=== PATIENT | female | born 1960 | race Caucasian/White ===

== ENCOUNTER 2024-01-20 06:07 | Outpatient (REF) | payer MEDICARE, MEDICAID, SELFPAY ==
[2024-01-20 08:05] LABS: Anion Gap 13 (12-20); Blood Urea Nitrogen 9 mg/dL (9-16); Calcium 9.5 mg/dL (8.4-10.2); Carbon Dioxide 29 mmol/L (22-29); Chloride 107 mmol/L (96-108); Cholesterol 205 mg/dL (<200); Estimated Glomerular Filt Rate > 60; Glucose Random 102 mg/dL (60-115); HDL Cholesterol 70 mg/dL (>40); LDL Cholesterol Calculated 115 mg/dL (<100); Sodium 145 mmol/L (135-145); Triglycerides 101 mg/dL (<150)
== END 2024-01-20 06:08 | disposition home or self-care (01) ==
LOC: HO.LAB 06:07
PROVIDERS: PCP Family Medicine; Visit Provider Family Medicine
DX: M79.672 Pain in left foot (principal); E78.00 Pure hypercholesterolemia, unspecified
CPT/HCPCS: 36415; 80048; 80061

== ENCOUNTER 2025-02-05 08:27 | Outpatient (REF) | payer MEDICARE, MEDICAID, SELFPAY ==
--- NOTE | ~2025-02-05 | XR_ITS ---
EXAMINATION: XR SHOULDER 2 OR MORE VIEWS LEFT HISTORY: Pain in joint of left shoulder COMPARISON: There are no prior studies available for comparison. FINDINGS: Four views of the left shoulder are submitted. Osseous mineralization is normal. There is no fracture or dislocation. There is mild narrowing of the AC joint. The soft tissues are unremarkable. XR/XR shoulder LT min 2V IMPRESSION: Mild narrowing of the AC joint. Electronically signed by: Ld Coates MD 02/07/2025 01:52 PM EDT
== END 2025-02-05 08:28 | disposition home or self-care (01) ==
LOC: HO.XRAY 08:27
PROVIDERS: PCP Family Medicine; Visit Provider Nurse Practitioner Primary Care
DX: M25.512 Pain in left shoulder (principal)
CPT/HCPCS: 73030

== ENCOUNTER → 2025-02-05 08:55 | Outpatient (BNV) | payer MEDICARE, MEDICAID, SELFPAY | PROVIDERS: PCP Family Medicine; Visit Provider Radiology Diagnostic Radiology | DX: M25.512 Pain in left shoulder (principal) | CPT/HCPCS: 73030 ==

== ENCOUNTER 2025-10-03 07:24 | Outpatient (REF) | payer MEDICARE, MEDICAID, SELFPAY ==
--- OUTSIDE RECORDS SUMMARY | 2025-10-03 07:28 | XMS_ITS | Encounter Summary ---
Author Organization [facility] Address [address] [facility] [address] [place] [address] Phone Care Team Providers Care Microbiology Soil Scientist Name Role Phone Ld Martin MD Unavailable [phone] Ld Martin MD Unavailable Terence Marx MD Primary Care Provider Terence Marx MD Unavailable Encounter Details Date Type Department Care Team (Latest Contact Info) Description 12/04/2022 Transcribe Orders Virtual Department [address] [place] [address] Terence Marx MD [address] [place] [address], [address] [place] [address] [email or web address] Encounter for screening mammogram for malignant neoplasm of breast (Primary Dx) Social History Tobacco Use Types Packs/Day Years Used Date Smoking Tobacco: Former Cigarettes Smokeless Tobacco: Never Child or Family Care Answer Date Record ed Do you have problems with on e of the following making it difficult for you to work, study, or receive health care? No 05/23/2021 Education Answer Date Recorded Are you interested in help w ith more adult education (for example, completing high school, GED, job training, learning the [place] language, technical skills, or developing parenting skills)? No 05/23/2021 Food Answer Date Recorded Within the past 6 months we worried whether our food would run out before we got money to buy more. Never True 05/23/2021 Within the past 6 months the food we bought just didn't last and we didn't have enough money to get more. Never True Residential Stability Answer Date Recor ded What is your housing situation today? I have mingo mayes 05/23/2021 How many times have you move d in the past 12 months? Zero (I did not move) 05/23/2021 Paying for Meds Answer Date Recorded Do you have trouble paying for medicines? No 05/23/2021 Paying Utility Bills Answer Date Record ed Do you have trouble paying your heating or elect ricity bill? No 05/23/2021 Transportation Answer Date Recorded Has the lack of transportati on kept you from medical appointments or from getting medications? No 05/23/2021 Unemployment Answer Date Recorded Are you currently unemployed or working on a part-time or temporary basis, and looking for work? No 05/23/2021 Comments Unknown Sex and Gender Information Value Date Recorded Sex Assigned at Female 05/25/2020 10:28 AM EDT Legal Sex Female 9:50 PM EDT Gender Identity Female 05/25/2020 10:28 AM EDT Sexual Orientation Not on file documented as of this encounter Plan of Treatment Upcoming Encounters Date Type Department Care Team (Late st Contact Info) Description 03/18/2025 Procedure Pass [address] [address] 12/16/2025 9:30 AM EST Office Visit [facility] Medicine [address] [place] [address] Terence Marx MD [address] [place] [address] 04/19/2026 9:30 AM EDT Appointment [address] [address] Terence Marx MD [address] [place] [address] documented as of this encounter Results * BI MAMMOGRAM SCREENING WITH TOMOSYNTHESIS WITH CAD (BILATERAL) (12/10/2022 2:51 PM EST) Anatomical Region Laterality Modality Breast Left, Breast Right, Breast Bilateral Bila teral Mammography 12/13/2022 8:27 AM EST Impressions 12/13/2022 8:54 AM EST No mammographic signs of malignancy. Annual screening is recommended. BI-RADS CATEGORY: 1 - Negative. DENSITY: The breast tissue is almost entirely fat. Narrative 12/13/2022 8:54 AM EST Bilateral mammography is performed in conjunction with computed aided detection. 3-D tomography along with 2-D C view imaging was also performed. Comparison made to previous dated as far back as 09/21/2004 and as recent as 01/14/2012. No suspicious masses, areas of architectural distortion or suspicious microcalcifications. Procedure Note Petr Drake MD - 12/13/2022 Bilateral mammography is performed in conjunction with computed aideddetection. 3-D tomography along with 2-D C view imaging was alsoperformed. Comparison made to previous dated as far back as 09/21/2004 andas recent as 01/14/2012. No suspicious masses, areas of architectural distortion or suspiciousmicrocalcifications. IMPRESSION: No mammographic signs of malignancy. Annual screening is recommended. BI-RADS CATEGORY: 1 - Negative. DENSITY: The breast tissue is almost entirely fat. Terence Marx MD IMG MG EXAMS Final Result documented in this encounter Visit Diagnoses Diagnosis Encounter for screening mammogram for malignant neoplasm of breast- Primary Encounter for screening mammogram for malignant neoplasm of breast documented in this encounter Additional Health Concerns Assessment Noted Time PHQ-9 Depression Total Score: 9 11/25/19 23 2:11 PM EST PHQ-2 Depression Total Score: 3 11/25/19 2:11 PM EST documented as of this encounter Care Teams Microbiology Soil Scientist Relationship Specialty Start Date End Date Terence Marx MD [address] [place] [address] [address] [place] [phone] [email or web address] PCP - General Family Medicine 11/25/22 Ld Martin MD [address] [place] [address] [address] [place] [phone] [email or web address] Historical LMR Provider 08/23/17 Ld Martin MD [address] [place] [address] [address] [place] [phone] [email or web address] Insurance Assigned Provider 10/04/17 Terence Marx MD [address] [place] [address] [address] [place] [id number] [email or web address] Insurance Assigned Provider 02/07/24 documented as of this encounter Additional Source Comments The information contained in this document represents components of the legal health record. It is not the complete legal health record.[facility]
--- OUTSIDE RECORDS SUMMARY | 2025-10-03 07:28 | XMS_ITS | Clinical Summary ---
Author Organization [employer] Address [address] [facility] 7[address] [place] [address] Care Team Providers Care Certified Tower Climber Name Role Phone Unavailable Primary Care Provider Unavailabl e Allergies Active Allergy Reactions Criticality Noted Date Comments Codeine Rash Low 05/14/2024 Diclofenac Shortness of breath High 05/14/2024 Oxcarbazepine Shortness of breath High 09/22/2017 Rash,swelling of tongue and throat. Pantoprazole 09/22/2017 Rash swelling of the throat and tongue. Sodium Iodide Rash Low 05/14/2024 Venlafaxine Rash,Shortness of breath High 09/22/2017 Throat swelling swollen tougne Medications albuterol (Ventolin HFA) 108 (90 Base) MCG/ACT inhaler Inhale 2 puffs every 4 (four) hours if needed. 7 Active b complex vitamins capsule Take 1 capsule by mouth in the morning. Active DULoxetine (Cymbalta) [address] capsule TAKE 2 CAPSULES BY MOUTH EVERY MORNING AND TAKE 1 CAPSULE EVERY EVENING. 3 Active gabapentin (Neurontin) 800 MG tablet Take 800 mg by mouth 2 times daily. 3 Active ibuprofen 600 MG tablet Take 1 tablet by mouth every 8 (eight) hours if needed. 3 Active magnesium oxide (Mag-Ox) 250 MG tablet Take 250 mg by mouth in the morning. Active omeprazole (PriLOSEC) [address] capsule 3 Active traZODone (Desyrel) 50 MG tablet TAKE THREE TABLETS BY MOUTH AT BEDTIME 3 Active buPROPion (Zyban) 150 MG 12 hr tablet Take 150 mg by mouth 2 times daily. Do not crush, chew, or split. Active budesonide-form oterol (Symbicort) 160-4.5 MCG/ACT inhaler Inhale 2 puffs in the morning and at bedtime. Rinse mouth with water after use to reduce aftertaste and incidence of candidiasis. Do not swallow. Active Active Problems No known active problems Social History Tobacco Use Types Packs/Day Years Used Date Smoking Tobacco: Former Cigarettes Smokeless Tobacco: Former Tobacco Cessation:Counseling Given: Not Answered Comments Unknown Sex and Gender Information Value Date Recorded Sex Assigned at Female 08/07/2023 9:51 AM EDT Legal Sex Female 9:46 AM EDT Gender Identity Female 08/07/2023 9:51 AM EDT Sexual Orientation Choose not to disclose 2022 9:51 AM EDT Last Filed Vital Signs Vital Sign Reading Time Taken Comments Blood Pressure 114/62 03/15/2025 2:02 PM EDT Pulse 66 03/15/2025 2:02 PM EDT Temperature - - Respiratory Rate - - Oxygen Saturation - - Inhaled Oxygen Concentration - - Weight - - Height - - Body Mass Index - - Plan of Treatment Upcoming Encounters Date Type Department Care Team (Late st Contact Info) Description 10/14/2025 8:00 AM EST Office Visit [facility] [address] [place] [address] Humberto Hidalgo Health Maintenance Due Date Last Done Comments CT Colonography 1959 Colonoscopy 1959 Dental X-Ray: Full Mouth 1959 Depression Screening 1959 FIT DNA/Cologuard 1959 FOBT 1959 SDOH Screening 1959 Sigmoidoscopy 1959 IPV Vaccines (2 of 3 - 4-dose series) 06/19/1960 05/22/1960 Alcohol/Substance Use Screening 1971 Hepatitis C Screening 1977 Pneumococcal Vaccine: 50+ Years (1 of 2 - PCV) 1978 RSV Patients and Patients Aged 60 years or older (1 - Risk 50-74 years 1-dose series) 2009 Colorectal Cancer Screening 04/10/2022 FIT 04/10/2022 04/10/2021 Dental Oral Exam 06/23/2024 12/23/2023 Mammogram 12/10/2024 12/10/2022, 12/10/2022 COVID-19 Vaccine ( season) 2025 08/29/2023, 02/07/2023, 03/12/2022, Additional history exists Influenza Vaccine (#1) 2025 , 08/22/2021, 09/15/2019, Additional history exists Dental Prophylaxis 09/16/2025 03/15/2025, 1 11/15/2023, 01/08/2024 Tobacco Screening 03/15/2026 03/15/2025 Dental X-Ray: Bitewings 03/16/2026 03/15/2025, 08/07 DTaP/Tdap/Td Vaccines (3 - Td or Tdap) 03/09/2034 03/09/2024, 12/15/2013, 03/08/2002, Additional history exists Zoster Vaccines Completed 11/28/2021, 05/23/2021 HIB Vaccines Aged Out No longer eligi ble based on patient's age to complete this topic HPV Vaccines Aged Out No longer eligi ble based on patient's age to complete this topic Hepatitis A Vaccines Aged Out No long er eligible based on patient's age to complete this topic Hepatitis B Vaccines Aged Out No long er eligible based on patient's age to complete this topic Meningococcal B Vaccine Aged Out No l onger eligible based on patient's age to complete this topic Meningococcal Vaccine Aged Out No bhanu gee eligible based on patient's age to complete this topic RSV under 20 months Aged Out No longe r eligible based on patient's age to complete this topic Rotavirus Vaccines Aged Out No longer eligible based on patient's age to complete this topic Procedures Procedure Name Priority Date/Time Associated Diagnosis Comments PROPHYLAXIS - ADULT Routine 03/15/2025 2 :00 PM EDT BITEWINGS - 4 RADIOGRAPHIC IMAGES Routine 03/15/2025 2:00 PM EDT COMPREHENSIVE ORAL EVALUATION - NEW OR ESTABLISHED PATIENT Routine 12/23/2023 2:00 PM EST from Last 3 Months or Most Recently Relevant to Health Maintenance Insurance [facility] STANDARD DENTAL - HSN FULL (MEDICAID)
--- OUTSIDE RECORDS SUMMARY | 2025-10-03 07:28 | XMS_ITS | Encounter Summary ---
Author Organization [facility] Address [address] [address] [place] [address] Phone Care Team Providers Care Foreign Exchange Position Clerk Name Role Phone Ld Martin MD Unavailable [phone] Ld Martin MD Unavailable [phone] Terence Marx MD Primary Care Provider [phone] Terence Marx MD Unavailable Encounter Details Date Type Department Care Team (Late st Contact Info) Description 12/04/2022 Procedure Pass [facility] - [address] [place] [address] Social History Tobacco Use Types Packs/Day Years [...] high school, GED, job training, learning the [place] language, technical skills, or developing parenting skills)? [...] and looking for work? No 05/23/2021 Comments No Sex and Gender Information Value Date Recorded Sex Assigned at Female 05/25/2020 10:28 AM EDT Legal Sex Female 9:50 PM EDT Gender Identity Female 05/25/2020 10:28 AM EDT Sexual Orientation Not on file documented as of this encounter Plan of Treatment Upcoming Encounters Date Type Department Care Team (Late st Contact Info) Description 03/18/2025 Procedure Pass [address] [address] 12/16/2025 9:30 AM EST Office Visit [facility] Medicine [address] [place] [address] Terence Marx MD [address] [place] [address] 04/19/2026 9:30 AM EDT Appointment [address] [address] Terence Marx MD [address] [place] [address] documented as of this encounter Visit Diagnoses Not on filedocumented in this encounter Additional Health Concerns Assessment Noted Time PHQ-9 Depression Total Score: 9 11/25/19 2:11 PM EST PHQ-2 Depression Total Score: 3 11/25/19 2:11 PM EST documented as of this encounter Care Teams Foreign Exchange Position Clerk Relationship Specialty Start Date End Date Terence Marx MD [address] [facility] [address] [place] [address] [email or web address] PCP - General Family Medicine 11/25/22 Ld Martin MD [address] [facility] [address] [place] [phone] [email or web address] Historical LMR Provider 08/23/17 Ld Martin MD [address] [facility] [address] [place] [phone] [email or web address] Insurance Assigned Provider 10/04/17 Terence Marx MD [address] [facility] [address] [place] [address] [email or web address] Insurance Assigned Provider 02/07/24 documented as of this encounter Additional Source Comments The information contained in this document represents components of the legal health record. It is not the complete legal health record.[facility]
--- OUTSIDE RECORDS SUMMARY | 2025-10-03 07:28 | XMS_ITS | Clinical Summary ---
Author Organization [facility] Address [address] [address] Phone Care Team Providers Care Case Aide Name Role Phone Ld Martin MD Unavailable Tami Marx MD Primary Care Provider [phone] Tami Marx MD Unavailable Allergies Active Allergy Reactions Criticality Noted Date Comments Adhesive Tape-Silicones 07/01/2024 Codeine Rash Low 05/14/2024 Diclofenac Shortness Of Breath High 05/14/2024 Oxcarbazepine Shortness Of Breath High 09/22/2017 Rash,swelling of tongue and throat. Pantoprazole 09/22/2017 Rash swelling of the throat and tongue. Sodium Iodide Rash Low 05/14/2024 Venlafaxine Rash,Shortness Of Breath High 09/22/2017 Throat swelling swollen tougne Medications aahezbbf-bjk-ts rrous fumarate 9 mg iron/15 mL Liqd as directed Active Ca cit-D3-mag#11-z chl-qapc-npo-dov r (CALTRATE 600+D) 600 mg calcium- 800 unit-50 mg Tab Take 1 tablet by mouth daily. Active magnesium oxide 250 mg (150 mg elemental) Tab Take 250 mg by mouth daily. Active biotin, bulk, 100 % Powd 2,500 mg by Miscellaneous route. Active b complex vitamins capsule Take 1 capsule by mouth daily. Active potassium 99 mg Tab Take by mouth daily. Active bacillus coagulans-inuli n 1 billion-250 cell-mg Cap Take 250 mg by mouth daily. Active VENTOLIN HFA 90 mcg/actuation inhalerIndicati ons:Mild asthma without complication, unspecified whether persistent Inhale 2 puffs into the lungs every 4 (four) hours as needed for wheezing. 18 g 5 3 Active budesonide-form oterol 160-4.5 mcg/actuation inhalerIndicati ons:Mild asthma without complication, unspecified whether persistent Inhale 2 puffs into the lungs 2 (two) times a day. 10.2 g 2 4 Active gabapentin (NEURONTIN) 800 MG tabletIndicatio ns:Fibromyalgia TAKE ONE TABLET BY MOUTH THREE TIMES A DAY. 270 tablet 3 5 Active DULoxetine (CYMBALTA) 60 MG capsule Take 1 capsule (60 mg total) by mouth daily. 90 capsule 3 5 Active DULoxetine (CYMBALTA) 30 MG capsule Take 1 capsule (30 mg total) by mouth daily. 90 capsule 3 5 Active omeprazole (PRILOSEC) 20 MG capsuleIndicati ons:Gastroesoph ageal reflux disease, unspecified whether esophagitis present Take 2 capsules (40 mg total) by mouth daily. 180 capsule 3 5 Active traZODone (DESYREL) 50 MG tabletIndicatio ns:Recurrent major depressive disorder, in partial remission TAKE THREE TABLETS BY MOUTH DAILY AT BEDTIME 270 tablet 3 5 Active foot care products Pads 2 Pads by Miscellaneous route as needed (Foot care). 2 each 2 5 Active HYDROmorphone (DILAUDID) 4 MG tabletIndicatio ns:Chronic left shoulder pain Take 1 tablet (4 mg total) by mouth daily as needed for pain (specific location in comments) (shoulder pain). 28 tablet 5 Active Hospital, Clinic, or Other Facility Administered Medication Ordered Dose Route Frequency Start Date End Date Status lidocaine (XYLOCAINE) 1% injection 2 mL 2 mL See Adm Inst See admin instructions 01/10/2023 Active BUPivacaine HCl (MARCAINE) 0.25% injection 2 mL 2 mL See Adm Inst See admin instructions 01/10/2023 Active triamcinolone acetonide (KENALOG-40) 40 mg/mL injection 40 mg 40 mg See Adm Inst See admin instructions 01/10/2023 Active Active Problems Problem Noted Date Diagnosed Date Generalized anxiety disorder 03/18/2025 Urge incontinence 03/18/2025 Primary insomnia 10/11/2024 Acquired hallux valgus of right foot 07/01/2024 Bunion of great toe of right foot 12/17/2023 Assessment & Plan (12/17/2023 12:37 AM EST): Patient would like to get an opinion from a reconciling clerk regarding her right foot bunion. It has been bothering her more with increased irritation along the side of the foot due to rubbing against the side of the shoe. A referral was placed for patient to follow-up with a reconciling clerk. Left foot pain 10/08/2023 Assessment & Plan (10/08/2023 8:32 PM EST): Patient has foot pain on the left side after suffering a fall at the end of June. She would like to see a reconciling clerk and referral has been placed during this appointment. Chronic left-sided low back pain with left-sided sciatica 04/28/2023 Assessment & Plan (10/08/2023 8:30 PM EST): Patient is going to be following up with aircraft painter apprentice next week after seeing the neurosurgeon. She continues to have left-sided low back pain for which she is taking ibuprofen, duloxetine and Tylenol. Will wait to see what the aircraft painter apprentice has to say about her condition and treatment options. Assessment & Plan (05/22/2023 9:41 AM EDT): Patient had MRI done earlier this month that shows mild to moderate spinal canal stenosis at the L3-L4 level as well as severe narrowing of the left subarticular zone the L4-L5 level. She is supposed to follow-up with neurosurgery at [facility] as a referral was placed by Dr. Law who ordered the MRI. She has not heard back from their office to set up an actual time but she is hoping to call them today and figure out how quickly they can see her regarding this problem. I will see the patient back in 6 weeks to make sure that she has discussed the case with neurosurgery and to see if they recommend conservative treatment or surgical intervention at this time. Assessment & Plan (04/28/2023 3:47 PM EDT): Please see plan- sciatica left side. Sciatica of left side 04/23/2023 Assessment & Plan (04/28/2023 3:48 PM EDT): I diagnosed Juan with left-sided sciatica today in the office-this is ongoing. Her symptoms are not improving- getting worse. She had a x-ray of the lower lumbar spine done in November showing arthritis. I wrote for an MRI to rule out any neurological issues. I wrote for Flexeril-to be taken as directed and side effects discussed regarding this medication- avoid driving or operating any heavy machinery while on this medication as it can cause an impairment in judgment. I wrote for physical therapy as well. I gave guidance regarding additional symptomatic management. She will call if her symptoms get worse or if there are any other issues or concerns. She understands and agrees. Assessment & Plan (04/23/2023 2:27 PM EDT): Will try prednisone taper for symptoms. She will follow up as needed if she is not improving. Mild asthma without complication 03/02/2023 Assessment & Plan (12/17/2023 12:36 AM EST): Patient had been using the Symbicort in the past but now reports that she would like to go back to using it on a daily basis now that she is having more shortness of breath with exertion. She has been using the Ventolin more frequently but would like to go back to taking an inhaler on a daily basis. Assessment & Plan (03/02/2023 5:03 PM EDT): Patient given refill on her Ventolin inhaler as she is no longer using the Symbicort. Patient only uses the Ventolin as needed. She has not required it in the last few weeks. Chronic left shoulder pain 11/25/2022 Assessment & Plan (11/25/2022 6:39 PM EST): Ordered x-ray of the left shoulder. We will discuss results with patient through the portal or via phone call. Chronic pain of both knees 11/25/2022 Assessment & Plan (11/25/2022 6:40 PM EST): Patient continues to complain of pain on the outside part of both knees. Will order x-rays of both knees and devise a plan to deal with the findings. If patient has mild to moderate arthritis, we will order physical therapy. If patient has severe degenerative joint disease, will refer to orthopedics for possible surgery and replacement of joint. Hip pain, chronic, left 11/25/2022 Assessment & Plan (11/25/2022 6:39 PM EST): Ordered x-ray of the left hip to check for arthritis. We will discuss results with patient once the imaging is done. Cervicalgia 11/28/2021 Assessment & Plan (11/28/2021 1:21 PM EST): I do think that rather than adding additional medication, therapeutic massage would be appropriate. Written prescription given Lumbar radiculopathy 11/28/2021 Assessment & Plan (03/02/2023 5:05 PM EDT): Patient complaining of lower back pain radiating to her left hip. We had gotten x-rays at the beginning of the year that showed arthritis. I had referred patient to physical therapy but patient lives in [place] and is unable to schedule ongoing PT due to transportation. I have not referred her to a physical therapist closer to home in [place] and I hope that she is able to follow-up so that she may get some relief in her low back pain. Assessment & Plan (11/25/2022 6:38 PM EST): We will increase the gabapentin to 800 mg 3 times a day to help relieve nerve pain coming from her lower back. Recheck in 4 weeks with patient to see how the new dose is working. Assessment & Plan (11/28/2021 1:20 PM EST): Juan continues to have pain. I do think that stress at home does not make this any better. Depression 09/14/2017 Assessment & Plan (12/17/2023 12:39 AM EST): Patient continues to feel depressed and I offered to increase her dose of duloxetine during the appointment. When I went to adjust the directions for the patient, she was surprised to learn that she is supposed to be taking 2 capsules in the morning and 1 in the afternoon. She has only been taking 1 twice a day. I will have the patient make the adjustment and reassess her in 3 months. Assessment & Plan (03/02/2023 5:06 PM EDT): Patient takes the duloxetine for her depression. She would like a refill of the duloxetine and the trazodone. Trazodone is used only at night to help her sleep. The duloxetine seems to be doing okay as her mood seems to be stable in the office today. We will call in prescription for duloxetine and trazodone. Fibromyalgia 09/14/2017 Assessment & Plan (12/17/2023 12:38 AM EST): Patient has history of fibromyalgia for which she takes gabapentin. Duloxetine has also been shown to be effective in helping with fibromyalgia symptoms. I have asked the patient to adjust her dose to what it says on her prescription. Patient has been taking only 1 capsule twice a day but she should be taking 3 capsules total over 24 hours. She will increase her dose to take 2 capsules in the morning and 1 in the evening which should also help with fibromyalgia. Assessment & Plan (03/02/2023 5:04 PM EDT): Patient is taking duloxetine and gabapentin for her nerve pain. The gabapentin is 800 mg twice a day that she is taking. Taking it 3 times a day as recommended at last visit proved to be too much as patient was drowsy and unable to function. She takes one 800 mg tablet twice a day and that seems to do well. Assessment & Plan (11/25/2022 6:38 PM EST): Patient is only taking hydromorphone occasionally when she cannot move. She has decreased her gabapentin down to 2 tablets a day but did not realize that the max dose of gabapentin is 3600 mg in 24 hours. She would like to increase the dose and see if we can get a better idea of how to control her pain. I called in a prescription of 800 mg to be taken 3 times a day for patient. We will recheck with her in 4 weeks. Assessment & Plan (02/25/2022 5:44 PM EDT): Juan states that she is having more pain lately. Weather does make a difference. In spite of the pain she seems to be managing emotionally. Assessment & Plan (08/22/2021 9:31 AM EDT): Juan is working hard at reducing her hydromorphone. She continues to want to eventually get off. We will reduce from 4/day to 3/day. Gastroesophageal reflux disease 09/14/2017 Assessment & Plan (03/02/2023 5:05 PM EDT): Patient requesting refills of her medications so that they are all being prescribed by her current PCP. I sent in a prescription for omeprazole to her local pharmacy. Assessment & Plan (02/25/2022 5:44 PM EDT): Juan is generally doing okay. Assessment & Plan (11/28/2021 1:21 PM EST): Continue the omeprazole. Increasing pain and using NSAIDs clearly are challenging with GERD. Mild persistent asthma with acute exacerbation 1 11/14/2016 Resolved Problems Problem Noted Date Diagnosed Date Resolved Date Tobacco use disorder 08/22/2021 022 Assessment & Plan (02/25/2022 5:44 PM EDT): Unfortunately she is still smoking 2 to 4 cigarettes daily. I did encourage complete cessation. Assessment & Plan (11/28/2021 1:21 PM EST): I did encourage her to try again to quit. Assessment & Plan (08/22/2021 9:33 AM EDT): Juan is down to 1 cigarette daily. She feels confident that she will quit. Encounters Date Type Department Care Team Description 09/16/2025 9:30 AM EST Office Visit [facility] [address] [place] [address] Tami Maxr MD Chronic pain of both knees (Primary Dx); Screening for colon cancer; Chronic left shoulder pain; Mild asthma without complication, unspecified whether persistent; Primary insomnia from Last 3 Months Immunizations Immunization Administration Dates Next Due COVID-19 (Pre-08/25) Moderna Vaccine, mRNA, PF 03/21/2021,02/21/2021 COVID-19 Moderna Spikevax Vaccine 12+ 08/29/2023 DT 1960 INFLUENZA, SPLIT VIRUS, TRIV ALENT W/ PRESERVATIVE IM 09/16/2011 Influenza Quadrivalent Prese rvative Free IM 09/02/2023,08/22/2021,10/02/2018,2016,09/09/2016,08/06/2010 Influenza Quadrivalent w/ Preservative IM 09/14/2014 Influenza Recombinant Pio valent Preservative Free IM 09/15/2019 Influenza trivalent preserva tive free intradermal 09/01/2013,07/24/2012 MMR 09/03/1969,04/22/1965 PPD Test 12/27/2019,01/08/2016,02/15/2015 Polio - OPV 05/22/1960 Rabies Unspecified Formulation 04/08/2002,2001,03/18/2002 Td (adult),2 Lf Tetanus Toxo id, PF, Adsorbed 03/09/2024,03/08/2002 Tdap 12/15/2013 Varicella 04/22/1961 Zoster recombinant 11/28/2021,05/23/2021 Family History Medical History Relation Comments Diabetes mellitus Father 2 Relation Status Comments Father 1 Father 2 Social History Tobacco Use Types Packs/Day Years Used Date Smoking Tobacco: Former Cigarettes Smokeless Tobacco: Never Tobacco Cessation:Counseling Given: Not Answered Child or Family Care Answer Date Record ed Do you have problems with on e of the following making it difficult for you to work, study, or receive health care? No 05/23/2021 Education Answer Date Recorded Are you interested in more education? Not on alisia e 05/27/2023 Are you concerned about learning? Not on file 05/27/2023 No 05/27/2023 No 05/27/2023 Food Answer Date Recorded Within the past [...] your housing situation today? I have mingo sing 05/23/2021 How many times have you move [...] basis, and looking for work? No 05/23/2021 Digital Access Answer Date Recorded No 03/30/2023 No 03/30/2023 Reliable internet access at home? Not on file 03/30/2023 Device with a working camera? Not on file Comments No Sex and Gender Information Value Date Recorded Sex Assigned at Female 05/25/2020 10:28 AM EDT Legal Sex Female 9:50 PM EDT Gender Identity Female 05/25/2020 10:28 AM EDT Sexual Orientation Not on file Last Filed Vital Signs Vital Sign Reading Time Taken Comments Blood Pressure 118/80 09/16/2025 9:44 AM EST Pulse 98 09/16/2025 9:44 AM EST Temperature 36.4 C (97.5 F) 01/28/2025 10:10 AM EDT Respiratory Rate - - Oxygen Saturation 98% 09/16/2025 9:44 AM EST Inhaled Oxygen Concentration - - Weight 73 kg (161 lb) 09/16/2025 9:44 AM EST Height 162.6 cm (5' 4.02 ) 09/16/2025 9:44 AM ES T Body Mass Index 27.62 09/16/2025 9:44 AM EST Plan of Treatment Upcoming Encounters Date Type Department Care Team (Late st Contact Info) Description 03/18/2025 Procedure Pass [address] [address] 12/16/2025 9:30 AM EST Office Visit [facility] [address] [place] [phone] Tami Marx MD [address] [address] 04/19/2026 9:30 AM EDT Appointment [address] [address] Tami Marx MD [address] [place] [phone] Health Maintenance Due Date Last Done Comments SMOKING Hx and SMOKELESS TOBACCO SCREENING 1972 PNEUMOCOCCAL VACCINES (50+ years) (1 of 2 - PCV) 1978 COLOGUARD 2004 COLONOSCOPY 2004 FOBT 2004 SIGMOIDOSCOPY 2004 VIRTUAL COLONOSCOPY 2004 RSV VACCINE (1 - Risk 50-74 years 1-dose series) 2009 COLORECTAL CANCER SCREENING 04/10/2022 FIT TEST 04/10/2022 04/10/2021 PAP SMEAR 09/22/2022 09/22/2017, 09/04, 09/24/2011 MAMMOGRAM 12/10/2024 12/10/2022, 05/2023, 04/05/2015 CREATININE LEVEL 01/19/2025 01/20/2024, , 05/23/2021, Additional history exists LIPID PANEL 01/19/2025 01/20/2024, 05/04, 05/29/2022, Additional history exists POTASSIUM LEVEL 01/19/2025 01/20/2024, 05/04, 05/23/2021, Additional history exists SCREENING FOR DIABETES 05/29/2025 05/29/2022 INFLUENZA VACCINE (#1) 2025 , 09/02/2023, 08/22/2021, Additional history exists COVID-19 VACCINE ( season) 2025 08/29/2023, 02/07/2023, 03/12/2022, Additional history exists DEPRESSION SCREENING 09/16/2026 09/16/2025, 03/09/20 24 Adult Td,Tdap Booster 03/09/2034 03/09/2024 , 12/15/2013, 03/08/2002 HEPATITIS C SCREENING Completed 05/26/2020, 020 ZOSTER VACCINES Completed 11/28/2021, 05/23/2021 OSTEOPOROSIS SCREENING INITIAL (ONE-TIME) Completed 05/13/2025 HEPATITIS A VACCINES Aged Out No long er eligible based on patient's age to complete this topic HIB VACCINES Aged Out No longer eligi ble based on patient's age to complete this topic MENINGOCOCCAL VACCINES (ACWY) Aged Out No longer eligible based on patient's age to complete this topic MENINGOCOCCAL VACCINES (B) Aged Out N o longer eligible based on patient's age to complete this topic Medical Devices Not on file Procedures Procedure Name Priority Date/Time Associated Diagnosis Comments BD DXA AXIAL (SPINE) WITH HIP Routine 05/13/2025 4:16 PM EDT Asymptomatic menopause BASIC METABOLIC PANEL (BMP) Routine 01/20/2024 2:00 PM EDT Left foot pain BI MAMMOGRAM SCREENING WITH TOMOSYNTHESIS WITH CAD (BILATERAL) Routine 12/10/2022 2:51 PM EST Encounter for screening mammogram for malignant neoplasm of breast LIPID PANEL Routine 05/29/2022 11:00 AM EDT Screening for condition HC BLOOD OCCULT FECAL HGB DETER IA QUAL FECES 1-3 Routine 04/10/2021 5:28 PM EDT Screening for condition HEPATITIS C ANTIBODY, QUALITATIVE Routine 05/26/2020 12:00 PM EDT Screening for condition PAP TEST Routine 09/22/2017 12:00 AM EST from Last 3 Months or Most Recently Relevant to Health Maintenance Results * BD DXA AXIAL (SPINE) WITH HIP (05/13/2025 4:16 PM EDT) Anatomical Region Laterality Modality Bone Density Bone Density 05/13/2025 4:15 PM EDT Impressions 05/16/2025 2:37 PM EDT Interpretation: Osteopenia. Narrative 05/16/2025 2:37 PM EDT Referred By: TAMI MARX Indications: Postmenopausal Scanner: [employer] A with serial# of [id number] located at [facility] Bone Density Scan (DXA) 05/13/25 Details of prior DXA scans are available by clicking View Full Report BMD T- Z- Skeletal Site gm/cm2 score score BMD Change Since Prior Scan ------ ----- ----- PA Spine (L1 L2) 1.000 0.20 1.90 N/A Total Hip (Left) 0.652 -2.40 -1.10 N/A Femoral Neck (Left) 0.656 -1.70 -0.20 N/A Total Hip (Right) 0.660 -2.30 -1.00 N/A Femoral Neck (Right) 0.624 -2.00 -0.50 N/A ------ ----- ----- * Denotes significant change when >= 0.022 g/cm2 for the spine, 0.027 g/cm2 for the total hip, 0.029 g/cm2 for the femoral neck. Interpretation: Osteopenia. Technical Quality: Imaging of all sites was of adequate quality.Because only two vertebrae are measurable, interpret PA spine results with caution; serial changes may be more variable than usual. FRAX: Based on FRAX(r) 3.6 ([place] White female), this patient's likelihood of hip fracture is 2.4% and major osteoporotic fracture is 28% over the next 10 years. The patient reported the following risks of fracture on a questionnaire: previous fracture as an adult and parental history of hip fracture. Reviewed By: Joanie Ramirez MD on 05/16/2025 14:37:53 Additional Information: -World Health Organization criteria classify adults based on lowest T-score at PA spine, hip or forearm: Normal (T-score >= -1.0), Osteopenia (T-score between -1 and -2.5), or Osteoporosis (T-score <= -2.5). At [facility], T-scores are compared to peak bone density of a young white gender matched reference population. - For premenopausal women and men under the age of 50, Z-scores (comparison to age, gender, and ethnicity matched reference population) are used: Above expected range for age (Z-score >= 2.0), Within expected range of age (Z-score 1.9 to -1.9), or Below expected range for age (Z-score <= -2.0). - The Bone Health and Osteoporosis Foundation recommends that treatment be considered in men aged more than 50 years and in postmenopausal women with ANY of the following: Prior hip or vertebral fractures; T-score of <= -2.5 at the PA spine or hip; or 10 year fracture probability by FRAX of >= 3% for the hip or >= 20% for major osteoporotic fracture. - The FRAX algorithm (https://www.enrike.ac.uk/FRAX/tool.aspx) is designed to predict 10-year fracture risk in treatment-naive adults between the ages of 40 and 90. It is not intended to be used in those receiving pharmacologic osteoporosis treatment. - The TBS is derived from the texture of the DXA spine image and has been shown to be related to bone microarchitecture and fracture risk. This data provides information independent of BMD value. It adds to fracture risk assessment with a FRAX adjusted for TBS score. If your patient had a TBS and qualified for a FRAX score, the reported FRAX score has been adjusted for TBS. TBS Score Interpretation 1.350 and greater Normal bone microarchitecture 1.200 to 1.350 Partially degraded bone microarchitecture 1.200 and less Degraded bone microarchitecture - Including race/ethnicity in the generation of T- or Z-scores or in the FRAX calculation is complicated, and currently undergoing active review to ensure that we can give patients the best information on their risk of fracture. - Some prior studies may not be compatible with our comparison software. - Click on View Full Report to see subsequent pages with images and prior bone density results. Procedure Note Joanie Ramirez MD - 05/16/2025 Referred By: TAMI MARX Indications: Postmenopausal Scanner: [employer] with serial# of [id number] located at [facility] Bone Density Scan (DXA) 05/13/25 Details of prior DXA scans are available by clicking View Full Report BMD T- Z- Skeletal Site gm/cm2 score score BMD Change Since Prior Scan ------ ----- PA Spine (L1 L2) 1.000 0.20 1.90 N/A Total Hip (Left) 0.652 -2.40 -1.10 N/A Femoral Neck (Left) 0.656 -1.70 -0.20 N/A Total Hip (Right) 0.660 -2.30 -1.00 N/A Femoral Neck (Right) 0.624 -2.00 -0.50 N/A ------ ----- * Denotes significant change when >= 0.022 g/cm2 for the spine, 0.027g/cm2 for the total hip, 0.029 g/cm2 for the femoral neck. Interpretation: Osteopenia. Technical Quality: Imaging of all sites was of adequate quality.Becauseonly two vertebrae are measurable, interpret PA spine results with caution; serial changes may be more variable than usual. FRAX: Based on FRAX(r) 3.6 ([place] White female), this patient's likelihoodof hip fracture is 2.4% and major osteoporotic fracture is 28% over the next10 years. The patient reported the following risks of fracture on a questionnaire: previous fracture as an adult and parental history of hip fracture. Reviewed By: Joanie Ramirez MD on 05/16/2025 14:37:53 Additional Information: -World Health Organization criteria classify adults based on lowestT-score at PA spine, hip or forearm: Normal (T-score >= -1.0), Osteopenia (T-score between -1 and -2.5), or Osteoporosis (T-score <= -2.5). At [facility], T-scores are compared to peak bone density of a young white gender matched reference population. - For premenopausal women and men under the age of 50, Z-scores(comparison to age, gender, and ethnicity matched reference population) are used:Above expected range for age (Z-score >= 2.0), Within expected range of age (Z-score 1.9 to -1.9), or Below expected range for age (Z-score <= -2.0). - The Bone Health and Osteoporosis Foundation recommends that treatment be considered in men aged more than 50 years and in postmenopausal women with ANY of the following: Prior hip or vertebral fractures; T-score of <= -2.5 at the PA spine or hip; or 10 year fracture probability by FRAX of >= 3%for the hip or >= 20% for major osteoporotic fracture. - The FRAX algorithm (https://www.enrike.ac.uk/FRAX/tool.aspx) is designed to predict 10-year fracture risk in treatment-naive adultsbetween the ages of 40 and 90. It is not intended to be used in those receiving pharmacologic osteoporosis treatment. - The TBS is derived from the texture of the DXA spine image and has been shown to be related to bone microarchitecture and fracture risk. This data provides information independent of BMD value. It adds to fracture risk assessment with a FRAX adjusted for TBS score. If your patient had a TBSand qualified for a FRAX score, the reported FRAX score has been adjusted for TBS. TBS Score Interpretation 1.350 and greater Normal bone microarchitecture 1.200 to 1.350 Partially degraded bone microarchitecture 1.200 and less Degraded bone microarchitecture - Including race/ethnicity in the generation of T- or Z-scores or in the FRAX calculation is complicated, and currently undergoing active review to ensure that we can give patients the best information on their risk of fracture. - Some prior studies may not be compatible with our comparison software. - Click on View Full Report to see subsequent pages with images andprior bone density results. IMPRESSION: Interpretation: Osteopenia. us Tami Marx MD IMG BD BONE DENSITY DEXA Final R esult * Basic metabolic panel (01/20/2024 2:00 PM EDT) Blood us Tami Marx MD LAB BLOOD BKR ORDERABLES Final R esult [facility] [address] [place] [address] * BI MAMMOGRAM SCREENING WITH TOMOSYNTHESIS WITH [...] The breast tissue is almost entirely fat. Tami Marx MD IMG MG EXAMS Final Result * (ABNORMAL) Lipid panel (05/29/2022 11:00 AM EDT) HDL 64 mg/dL [facility] Comment: Interpretation <40 mg/dL: Low HDL cholesterol (major risk factor for CHD) Greater than or equal to 60 mg/dL: High HDL cholesterol ( negative risk factor for CHD) HDL - cholesterol is affected by a number of factors, e.g. smoking, excerise, hormones, sex and age. CHOLESTEROL 193 0 - 240 mg/dL [facility] TRIGLYCERIDES 96 30 - 160 mg/dL [facility] LDL 110 50 - 129 mg/dL [facility] Comment: LDL levels in terms of risk for coronary heart disease: <100 mg/dL: Optimal 100-129 mg/dL: Near or above optimal 130-159 mg/dL: Borderline high 160-189 mg/dL: High >190 mg/dL: Very High CARDIAC RISK RATIO 3.0(L) 3.3 - 4.4 C [facility] Blood 05/29/2022 11:0 0 AM EDT 05/29/2022 11:05 AM EDT us Ld Martin MD LAB BLOOD BKR ORDERABLE S Final Result Performing Organization Address [facility] Co de Phone Number [address] [address] * Fecal immunochemical test x1 (FIT) (04/10/2021 5:28 PM EDT) Immuno Fecal Occult Negative Negative [facility] Stool (Stool) 04/10/2021 5:2 8 PM EDT 04/10/2021 5:29 PM EDT us Ld Martin MD LAB BODY FLUIDS AND STO OL ORDERABLES Final Result Performing Organization Address [facility] Co de Phone Number [address] [address] * Hepatitis C antibody, qualitative (05/26/2020 12:00 PM EDT) HCV NON-REACTIV E NON-REACTI VE [facility] Blood 05/26/2020 12:0 0 PM EDT 05/26/2020 12:32 PM EDT us Ld Martin MD LAB BLOOD BKR ORDERABLE S Final Result Performing Organization Address [facility] Co de Phone Number [address] [address] * Pap Smear (09/22/2017 12:00 AM EST) 09/22/2017 09/23/2017 2:5 8 PM EST Narrative SEE NARRATIVE - 09/29/2017 2:34 PM EST [address] [address] [employer] Photogrammetry: Enedina Roblero MD PREVENTIVE MEDICINE PHYSICIAN Cytology Report FINAL DIAGNOSIS A. PAP SMEAR (SUREPATH) CE: SPECIMEN ADEQUACY: Satisfactory for evaluation; transformation zone present. INTERPRETATION: NEGATIVE FOR INTRAEPITHELIAL LESION OR MALIGNANCY. Electronically Signed Out By: FLASH Mohamud(ASCP) The Pap test is a screening test primarily for squamous cancers and precursors and has associated false-negative and false-positive results. New technologies such as liquid-based preparations may decrease but will not eliminate all false-negative results. Regular sampling and follow-up of unexplained clinical signs and symptoms are recommended to minimize false negative results. CLINICAL HISTORY Date of Last Menstrual Period: Not Provided Menstrual History: Post Menopausal Other Clinical Conditions: Screening Pap SPECIMEN SOURCE A: PAP SMEAR (SUREPATH) CE Patient Name: JUAN BUCIO : 1960 (Age: 57) Sex: F Institution: [facility] Location: [facility] Date of Collection: 09/22/2017 Date of Reported: 09/29/2017 14:34 Results to: Ld Martin MD, BS Ld Martin MD CYTOLOGY ORDERABLES Fin al Result SEE NARRATIVE from Last 3 Months or Most Recently Relevant to Health Maintenance Insurance [place] [id number] [facility] MEDICARE PART A & B [facility] MEDICARE PART A & B MEDICARE PART A & B MEDICARE PART A & B MEDICARE PART A & B MEDICARE PART A & B [facility] Care Teams Case Aide Relationship Specialty Start Date End Date Tami Marx MD [address] [place] [address] [address] [place] [address] [email or web address] PCP - General Family Medicine 11/25/22 Ld Martin MD [address] [place] [address] [address] [place] [id number] [email or web address] Historical LMR Provider 08/23/17 Tami Marx MD [address] [place] [address], [address] [place] [address] [email or web address] Insurance Assigned Provider 02/07/24 Additional Source Comments The information contained in this document represents components of the legal health record. It is not the complete legal health record.[facility]
--- OUTSIDE RECORDS SUMMARY | 2025-10-03 07:28 | XMS_ITS | Encounter Summary ---
Author Organization [facility] Address [address] [facility] [address] [place] [address] Phone Care Team Providers Care Oxygen Therapist Name Role Phone Ld Martin MD Unavailable [phone] Terence Marx MD Primary Care Provider [phone] Terence Marx MD Unavailable Encounter Details Date Type Department Care Team (Late st Contact Info) Description 04/28/2023 Procedure Pass [facility], [address] [address] Social History Tobacco Use Types Packs/Day Years [...] high school, GED, job training, learning the Chinese language, technical skills, or developing parenting skills)? [...] on file documented as of this encounter Last Filed Vital Signs Vital Sign Reading Time Taken Comments Blood Pressure - - Pulse - - Temperature - - Respiratory Rate - - Oxygen Saturation - - Inhaled Oxygen Concentration - - Weight 76.2 kg (168 lb) 04/30/2023 3:05 PM EDT Height 162.6 cm (5' 4 ) 04/30/2023 3:05 PM EDT Body Mass Index 28.84 04/30/2023 3:05 PM EDT documented in this encounter Plan of Treatment Upcoming Encounters Date Type Department Care Team (Late st Contact Info) Description 03/18/2025 Procedure Pass [address] [address] 12/16/2025 9:30 AM EST Office Visit [facility] [address] [place] [address] Terence Marx MD [address] [facility], [address] [place] [address] 04/19/2026 9:30 AM EDT Appointment [address] [place] [address] Terence Marx MD [address] [facility], [facility] [address] [place] [address] [email or web address] documented as of this encounter Visit Diagnoses Not on filedocumented in this encounter Additional Health Concerns Assessment Noted Time PHQ-9 Depression Total Score: 9 11/25/19 2:11 PM EST PHQ-2 Depression Total Score: 3 11/25/19 2:11 PM EST documented as of this encounter Care Teams Oxygen Therapist Relationship Specialty Start Date End Date Terence Marx MD [address] [facility], [facility] [address] [place] [address] [email or web address] PCP - General Family Medicine 11/25/22 Ld Martin MD [address] [place] [address] [place] [id number] [email or web address] Historical LMR Provider 08/23/17 Terence Marx MD 234 [facility] [address] [place] [address] [email or web address] Insurance Assigned Provider 02/07/24 documented as of this encounter Additional Source Comments The information contained in this document represents components of the legal health record. It is not the complete legal health record.[facility]
[2025-10-03 07:35] LABS: MANUAL DIFF FLAG NO
[2025-10-03 08:18] LABS: Hematocrit 45.3 % (37.0-47.0); Hemoglobin 14.7 g/dl (12.0-16.0); Imm Gran Abs Auto 0.03 X10*3/uL (0.00-0.03); Imm Gran Pct Auto 0.5 % (0.0-0.4); Lymphocytes Absolute Auto 2.5 X10*3/uL (1.2-4.9); Mean Corpuscular HGB Conc 32.5 g/dl (31.0-35.0); Mean Corpuscular Hemoglobin 29.5 pg (27.0-33.0); Mean Corpuscular Volume 91.0 fL (80.0-98.0); NRBC Abs Auto 0.000 X10*3/uL (0.0-0.012); NRBC Pct Auto 0.0 /100WBC (0.0-0.2); Platelet Count 324 X10*3/uL (160-400); Red Blood Count 4.98 X10*6/uL (4.20-5.50); White Blood Count 6.6 X10*3/uL (4.8-10.8)
[2025-10-03 08:24] LABS: Alanine Aminotransferase 15 U/L (0-31); Albumin Level 4.0 g/dL (3.5-5.0); Alkaline Phosphatase 67 U/L (39-117); Anion Gap 11 (12-20); Aspartate Amino Transferase 25 U/L (5-31); Blood Urea Nitrogen 17 mg/dL (9-16); Calcium 9.5 mg/dL (8.4-10.2); Carbon Dioxide 29 mmol/L (22-29); Chloride 109 mmol/L (96-108); Cholesterol 191 mg/dL (<200); Estimated Glomerular Filt Rate > 60; HDL Cholesterol 65 mg/dL (>40); Potassium 3.9 mmol/L (3.3-5.1); Sodium 145 mmol/L (135-145); Total Protein 6.4 g/dL (6.5-8.0); Triglycerides 75 mg/dL (<150)
== END 2025-10-03 07:25 | disposition home or self-care (01) ==
LOC: HO.LAB 07:24
PROVIDERS: PCP Family Medicine; Visit Provider Family Medicine
DX: Z13.6 Encounter for screening for cardiovascular disorders (principal); Z13.89 Encounter for screening for other disorder
CPT/HCPCS: 36415; 80053; 80061; 85025